=== PATIENT | male | born 1960 | race Two or more races ===

== ENCOUNTER 2024-03-11 14:46 | Emergency (ER) | payer MEDICAID, SELFPAY ==
[2024-03-11 14:51] VITALS: BP 131/82; PULSE 107; RESP 20; TEMP 36.6; O2SAT 93
--- NOTE | 2024-03-11 14:52 | PD.EDALCOH ---
ED Alcohol RME/HPI General Chief Complaint: Alcohol Stated Complaint: DRUNK Time Seen by Provider: 03/11/24 14:51 Arrival date/time: 03/11/24 14:46 RME / HPI RME / HPI narrative: 63 year old male presents to the ED BIBA for alcohol intoxication. Per medics report, bystanders called for help after patient was found laying on the side walk. State when they arrived patient smelled of alcohol and speech is slurred. Patient reportedly admitted to drinking 20 cans of beer in the last 3 hours. While in the ED patient reports no complaints. Related Data Home Medications ?Medication ?Instructions ?Recorded ?Confirmed No Known Home Medications 07/11/20 07/11/20 Previous Rx's ?Medication ?Instructions ?Recorded folic acid 1 mg tablet 1 mg PO DAILY #30 tabs 07/13/20 insulin regular human 100 unit/mL 0 unit (0 mL) subcut ACHS #10 mL 07/13/20 injection solution (Novolin R Regular U-100 Insulin) metformin 500 mg tablet 500 mg PO BID #60 tabs 07/13/20 multivitamin-iron 9 mg-folic acid 1 tab PO QDAY #30 tabs 07/13/20 400 mcg-calcium and minerals tablet (Thera M Plus (ferrous fumarate)) thiamine mononitrate (vit B1) 100 100 mg PO DAILY #30 tabs 07/13/20 mg tablet (Vitamin B-1 (mononitrate)) Allergies Allergy/AdvReac Type Severity Reaction Status Date / Time No Known Allergies Allergy Verified 07/11/20 13:06 Review of Systems Review of Systems Systems Reviewed: All systems reviewed, normal except as documented Past Medical History Past Medical History CARDIAC: Positive Hypercholesterolemia and Hypertension; Negative Congestive Heart Failure RESPIRATORY: Negative Chronic Obstructive Pulmonary Disease (COPD) GENITOURINARY: Negative Renal Disease ENDOCRINE: Positive Diabetes Mellitus Type 2; Negative Diabetes Mellitus Type 1 Social History SMOKING STATUS: Unknown if ever smoked SUBSTANCE USE: does not use ED Exam Narrative Physical exam: GENERAL APPEARANCE: Intoxicated, smells of alcohol, slurred speech HEENT: NC, AT. MMM. EOMI, clear conjunctiva, oropharynx clear. NECK: Supple without lymphadenopathy. No stiffness or restricted ROM. HEART: Normal rate and regular rhythm, normal S1/S1, no m/r/g LUNGS: CTAB, moving air well. No crackles or wheezes are heard. ABDOMEN: Soft, nontender, nondistended with good bowel sounds heard. BACK: No midline C/T/L spine pain or deformity, No CVAT, no obvious deformity. EXTREMITIES: Without cyanosis, clubbing or edema. MUSCULOSKELETAL: FROM of all major joints, no chest tenderness. NEUROLOGICAL: Grossly nonfocal. CN not formally tested but appear grossly intact. Skin: Warm and dry without any rash. Course Quality Measures none Reevaluation(s) Reevaluation #1: Patient remains clinically stable throughout the emergency department visit. Patient is amenable to discharge. Time: 17:10 Vital Signs Vital signs: Vital Signs Temperature 97.9 F 03/11/24 14:51 Pulse Rate 107 H 03/11/24 14:51 Respiratory Rate 20 03/11/24 14:51 Blood Pressure 131/82 H 03/11/24 14:51 Pulse Oximetry (%) 93 L 03/11/24 14:51 Oxygen Delivery Method Room Air 03/11/24 14:51 Pulse ox is 93% on room air which is borderline low. Discharge Plan Plan Patient Disposition: HOME (Self Care) Prescriptions/Referrals Prescriptions/Med Rec: No Action No Known Home Medications Novolin R Regular U100 Insulin 100 unit/mL Solution 0 unit subcut ACHS Qty: 10 0RF folic acid 1 mg Tablet 1 mg PO DAILY Qty: 30 0RF Thera M Plus (ferrous fumarat) 9 mg iron-400 mcg Tablet 1 tab PO QDAY Qty: 30 0RF thiamine mononitrate (vit B1) [Vitamin B-1 (mononitrate)] 100 mg Tablet 100 mg PO DAILY Qty: 30 0RF metformin 500 mg tablet 500 mg PO BID Qty: 60 0RF Problem List Clinical Impression: Alcoholic intoxication Patient/Caregiver Discharge Instructions Education Materials: ED Alcohol Intoxication Additional Instructions: No myla alcohol en exceso, considere suspender el consumo de alcohol por completo para mejorar hammer devyn. Puede realizar un seguimiento con hammer m?dico de atenci?n primaria y/o el departamento de devyn mental del condado si se siente preparado para recibir apoyo de rehabilitaci?n de alcohol y/o drogas. No dude en regresar al departamento de emergencias antes si los s?ntomas empeoran o si nota alg?n problema nuevo que le preocupe. Print Language: Cambodian Stand Alone Forms: Charo Award Info., Patient Portal Info Letter Alcohol MDM Narrative MDM Narrative: IValerie, am scribing for and in the presence of Dr. German. Patient data External records reviewed:: [facility] previous records (I reviewed admission from 07/11/2020 through 07/13/2020) Clinical information provided by:: patient and EMS Social determinants that could affect healthcare access:: alcohol use Patient has the following chronic illnesses:: HTN, DM, alcohol use How is presenting disease/condition affected by chronic disease/condition?: exacerbated by Evaluation data The following diagnostics were reviewed and interpreted by me:: other (specify) (No diagnostic labs for review ) Lab and/or radiology exams considered but not ordered:: None Interpretation Summary: No diagnostic labs for review Medications / Prescriptions Medications or Prescriptions considered but not ordered:: None Medication administrations:: none Consultations Consultation(s) initiated? (list below): No Diagnosis Differential diagnosis alcohol: alcohol withdrawal delirium, alcohol intoxication, alcohol ketoacidosis, alcohol withdrawal syndrome and alcohol withdrawal seizure Most likely diagnosis given after review of the tests above:: Alcohol intoxication Admission Indicated Admission indicated?: not indicated Admission Request Was there a request for admission?: No Disposition Plan Disposition Plan: Discharge Discharge Attestation Discharge Attestation: The patient and all family members were given an opportunity to ask questions and understood the discharge instructions. Discharge instructions specifically effects, indications for sooner follow up or return to the emergency department, and the expected course of current diagnosis. Patient condition: Stable
[2024-03-11 15:05] VITALS: PULSE 111; RESP 24; O2SAT 97; BMI 23.3
--- NOTE | 2024-03-11 18:07 | PC.NURSE ---
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
== END 2024-03-11 18:29 | disposition home or self-care (01) ==
LOC: SERX 18:21
PROVIDERS: Emergency Provider Emergency Medicine
DX: F10.129 Alcohol abuse with intoxication, unspecified (principal)
CPT/HCPCS: 99283

== ENCOUNTER 2024-03-17 17:32 | Emergency (ER) | payer MEDICAID, SELFPAY ==
[2024-03-17] VITALS (32 sets, daily range): BP systolic 110–192; BP diastolic 64–127; PULSE 130–139; RESP 16–36; TEMP 37–37.7; O2SAT 98–100; BMI 24.9
--- NOTE | 2024-03-17 18:07 | PC.NURSE ---
Patient to er from [facility] and taken to room 5 with at bedside, stating patient has been drinking beer all day everyday for 9 days, today patient has not drank today, last drink was 0800 am yesterday. Today brought patient to er because patient c/o headache and stomach ache and has h/o diabetes, also, patient been soiled himself yesterday and today. Patient has h/o diabetes and has had DKA in the past, provider, Elvi MUSEUM TECHNICIAN at bedside new orders received.
--- NOTE | 2024-03-17 18:15 | EKG_ITS ---
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
--- NOTE | 2024-03-17 18:15 | XR_ITS ---
Examination: CT brain head without contrast. 2-D sagittal coronal reconstructions Date and time of exam:March 17, 2024 1848 hrs. Indications: Altered mental status and confusion beginning yesterday Comparison: February 11, 2019 CTDI: vol (mGy):46.6 DLP: (mGycm):999 Technique: Multiple CT axial sections of the brain have been obtained, 5 mm slice thickness. Contrast has not been administered. 2-D sagittal, coronal reconstructions have been obtained Low dose protocols were performed. One or more of the following dose reduction techniques were used; automated exposure control, adjustment of the mA and/or KV according to patient size, use of iterative reconstruction technique. Findings: Acute subdural hematoma peripheral to the right cerebral hemisphere, measuring up to 12 mm at the level of the lateral ventricles There is shift of the frontal horns to the left 2.5 mm Cranial vault intact Fourth ventricle midline No herniation of the cerebellar tonsils Impression: Acute subdural hematoma peripheral to the right cerebral hemisphere with mass effect as above
--- NOTE | 2024-03-17 18:15 | XR_ITS ---
Examination: CT cervical spine without contrast 2-D sagittal reconstructions 2-D coronal reconstructions 3-D reconstructions. Exam date and time:March 17, 2024 1848 hrs. Indications: Altered mental status confusion neck pain beginning yesterday CTDI:vol (mGy) 7.56 DLP: (mGycm) 156 Technique: Multiple 2 mm axial sections of the cervical spine have been obtained. The coronal and sagittal reconstructions have been obtained. 3-D reconstructions have been obtained. Low dose protocols were performed. One or more of the following dose reduction techniques were used; automated exposure control, adjustment of the mA and/or KV according to patient size, use of iterative reconstruction technique. Findings: Axial sections demonstrate intact base of the skull. C1 exhibit satisfactory relationship to the odontoid. No acute cervical vertebral body fracture seen. Alignment posterior spinous processes satisfactory. Impression: No acute cervical fracture.
--- NOTE | 2024-03-17 18:15 | XR_ITS ---
Examination: AP chest single view Technique one AP portable sitting chest single view Exam date and time: March 17, 2024 1904 hrs. Indications: Syncopal episode today. Findings: Normal heart size The lungs are clear, no aspiration pneumonia Moderate osteopenia Impression: Negative for aspiration pneumonia
[2024-03-17] MEDS: SODIUM CHLORIDE 0.9% 1000 ML 1,000 ML 999 ML IV ×2 (18:36)
[2024-03-17 18:46] LABS: Basophils % (Auto) 0 % (0-2.5); Eosinophils % (Auto) 0 % (0-10); Hemoglobin 15.3 g/dL (13.5-16.0); Immature Granulocytes % (Auto) 0 % (0-0); Immature Granulocytes Auto 0.04 Thou/mm3 (0.00-0.00); Lymphocytes # (Auto) 0.2 Thou/mm3 (1.0-4.8); Lymphocytes % (Auto) 2 % (10-50); Mean Corpuscular HGB Conc 35.6 g/dl (31.0-37.0); Mean Corpuscular Volume 82 fL (80-100); Monocytes # (Auto) 0.7 Thou/mm3 (0.0-0.8); Monocytes % (Auto) 6 % (0-12); Neutrophils # (Auto) 11.1 Thou/mm3 (1.8-7.7); Neutrophils % (Auto) 92 % (37-80); Nucleated Red Blood Cell % 0 /100 WBC (0); Platelet Count 251 Thou/mm3 (140-440); RDW Standard Deviation 38.9 fL (35.1-43.9); Red Blood Count 5.27 Miln/mm3 (4.50-5.90); White Blood Count 12.1 Thou/mm3 (3.8-10.6)
--- NOTE | 2024-03-17 18:46 | PC.NURSE ---
Patient gone to ct
--- NOTE | 2024-03-17 18:54 | PD.EDALCOH ---
ED Alcohol RME/HPI General Chief Complaint: Alcohol Stated Complaint: DRINKING ETOH x 1 WEEK, CONFUSED SINCE YESTERDAY Time Seen by Provider: 03/17/24 18:14 Source: EMS Arrival date/time: 03/17/24 17:32 Mode of arrival: EMS Limitations: no limitations RME / HPI RME / HPI narrative: Dr. Shin?s Main ED Evaluation: 63-year-old male was brought to the Emergency Department by family via private vehicle due to progressively worsening confusion that began yesterday. According to the patient's daughter, he has been drinking alcohol heavily for the past 9 days after maintaining 3 years of sobriety. The exact amount and type of alcohol consumed are unclear. The daughter reports the patient had a fall about a week ago. She notes the patient has not had a fall while in her care for the past 7 days. No additional symptoms such as weakness, dizziness, nausea, vomiting, or seizure activity were reported at this time. The patient?s baseline mental status prior to the recent alcohol binge was described as normal, without known cognitive impairment. Related Data Home Medications ?Medication ?Instructions ?Recorded ?Confirmed No Known Home Medications 07/11/20 07/11/20 Previous Rx's ?Medication ?Instructions ?Recorded folic acid 1 mg tablet 1 mg PO DAILY #30 tabs 07/13/20 insulin regular human 100 unit/mL 0 unit (0 mL) subcut ACHS #10 mL 07/13/20 injection solution (Novolin R Regular U-100 Insulin) metformin 500 mg tablet 500 mg PO BID #60 tabs 07/13/20 multivitamin-iron 9 mg-folic acid 1 tab PO QDAY #30 tabs 07/13/20 400 mcg-calcium and minerals tablet (Thera M Plus (ferrous fumarate)) thiamine mononitrate (vit B1) 100 100 mg PO DAILY #30 tabs 07/13/20 mg tablet (Vitamin B-1 (mononitrate)) Allergies Allergy/AdvReac Type Severity Reaction Status Date / Time No Known Allergies Allergy Verified 03/17/24 17:36 Past Medical History Past Medical History CARDIAC: Positive Hypercholesterolemia and Hypertension; Negative Cardiac Disorders or Congestive Heart Failure RESPIRATORY: Negative Chronic Obstructive Pulmonary Disease (COPD) or Asthma GENITOURINARY: Negative Renal Disease ENDOCRINE: Positive Diabetes Mellitus Type 2 (hasn't taken medication in months per ); Negative Diabetes Mellitus Type 1 HEMATOLOGIC: Negative Sickle Cell Disease Social History SMOKING STATUS: Current every day smoker SUBSTANCE USE: does not use ED Exam Narrative Physical exam: GENERAL APPEARANCE: Patient is awake, alert, and follows commands but appears confused. Speech is incoherent. VITALS: All vitals were reviewed and the pulse ox is 99% on room air, which is normal according to my interpretation. HEENT: Healing contusion with eschar noted on the left forehead. No gordon signs or raccoon eyes. Left pupil is 6mm. Right pupil is 2mm. Healing contusion to the left periorbital area. NECK: Supple LUNGS: CTABL; no wheezes, no rales, no rhonchi. Patient is protecting his airway. HEART: Tachycardic ABDOMEN: non distended; normal BS; soft, no tenderness, no guarding, no rebound; no masses, no organomegaly, no hernia BACK: no CVA tenderness EXTREMITIES: atraumatic; no edema NEUROLOGIC: Patient is awake, alert, and follows commands but appears confused. Speech is incoherent. PSYCHIATRIC: appropriate mood and affect SKIN: warm, dry, normal color; no rashes General Limitations: Present no limitations Course Course Course Narrative: CXR is ordered for determining etiology of syncopal episode. Quality Measures none Orders Category Date Time Status Bedside Blood Glucose NOW Care 03/17/24 18:[address] Screening NOW Care 03/17/24 18:[address] Screening X1 Care 03/17/24 18:41 Completed Bagging Machine Operator STAT Care 03/17/24 18:15 Completed DKA Protocol QSHIFT Care 03/17/24 19:56 Completed DKA Protocol QSHIFT Care 03/17/24 20:34 Completed EKG (ED ONLY) *Do not use* NOW Care 03/17/24 18:15 Completed Insert IV NOW Care 03/17/24 18:15 Completed Intubation NOW Care 03/17/24 21:[address] cervical spine wo con Stat Exams 03/17/24 18:[address] head/brain wo con Stat Exams 03/17/24 18:15 Completed EKG (ED Only) Stat Exams 03/17/24 18:15 Draft XR chest 1V portable Stat Exams 03/17/24 18:15 Completed XR chest 1V post procedure Stat Exams 03/17/24 21:23 Completed ABG [Arterial Blood Gas] Stat Lab 03/17/24 22:45 Completed Alcohol, Blood Medical Stat Lab 03/17/24 18:38 Completed Ammonia Stat Lab 03/17/24 18:38 Completed CBC Stat Lab 03/17/24 18:38 Completed Comprehensive Metabolic Panel Stat Lab 03/17/24 18:38 Completed Drug Screen,Urine Stat Lab 03/17/24 20:45 Completed Ketone [Beta Hydroxybutyrate] Stat Lab 03/17/24 19:46 Completed Lactate (Lactic Acid) Stat Lab 03/17/24 20:34 Completed Magnesium Stat Lab 03/17/24 18:38 Completed Partial Thromboplastin Time Stat Lab 03/17/24 18:38 Completed Phosphorous Stat Lab 03/17/24 18:38 Completed Prothrombin Time with INR Stat Lab 03/17/24 18:38 Completed Sputum Culture and Gram Stain Stat Lab 03/17/24 22:18 Results Troponin I Stat Lab 03/17/24 18:38 Completed Urinalysis Stat Lab 03/17/24 20:45 Completed Dextrose 5%-Lactated Ringers [D5-Lr] 1,000 ml Med 03/17/24 20:34 Discontinued Pot Chl Additive [KCl Additive] 40 meq IV 250 mls/hr Dextrose 5%-Lactated Ringers [D5-Lr] 1,000 ml Med 03/17/24 20:34 Discontinued IV 250 mls/hr Dextrose 50% Syr [D50w Syringe Abboject] Med 03/17/24 20:34 Discontinued 25 ml IV PRNMRX1 PRN Diazepam Inj [Valium Inj] Med 03/17/24 20:09 Discontinued 10 mg IVP X1 ONE Etomidate Inj [Amidate Inj] Med 03/17/24 20:55 Discontinued 20 mg IVP X1 ONE Folic Acid Inj Med 03/17/24 19:13 Discontinued 1 mg IVP X1 ONE KCL 20 mEq/L in D5-LR Med 03/17/24 20:34 Discontinued 20 meq in 1,000 ml IV 250 mls/hr LORazepam [Ativan Inj] Med 03/17/24 19:26 Discontinued 1 mg IVP X1 ONE LORazepam [Ativan Inj] Med 03/17/24 19:59 Discontinued 1 mg IVP X1 ONE POT PHOS 15 mMol in NS 250 ML [Pot Phos 15 mMol in NS Med 03/17/24 20:34 Discontinued 250 ml] 15 mmol in 250 ml IV PRN POTASSIUM CHL 10 mEq IVPB [Kcl Ivpb] Med 03/17/24 20:34 Discontinued 10 meq in 100 ml IV 100 mls/hr POTASSIUM CHL 10 mEq IVPB [Kcl Ivpb] Med 03/17/24 20:34 Discontinued 10 meq in 100 ml IV PRN Pre-Mixed [Pre-mixed Bag] 1 bag Med 03/17/24 19:56 Discontinued Insulin Reg 100 Units/100 ml [Myxredlin] 100 unit IV 0.1 unit/kg/hr Propofol 1,000 mg Ivpb [Diprivan Ivpb] Med 03/17/24 20:56 Discontinued 1,000 mg in 100 ml IV 5 mcg/kg/min Ringers Lactated 1000 ml [Lactated Ringers] 1,000 ml Med 03/17/24 20:34 Discontinued Pot Chl Additive [KCl Additive] 20 meq IV 250 mls/hr Ringers Lactated 1000 ml [Lactated Ringers] 1,000 ml Med 03/17/24 20:34 Discontinued Pot Chl Additive [KCl Additive] 40 meq IV 250 mls/hr Ringers Lactated 1000 ml [Lactated Ringers] 1,000 ml Med 03/17/24 20:34 Discontinued IV 250 mls/hr Rocuronium Inj [Zemuron Inj] Med 03/17/24 20:55 Discontinued 50 mg IVP X1 ONE Sodium Bicarb 8.4% SYR Med 03/17/24 20:34 Discontinued 50 ml IV PRN PRN Sodium Chloride 0.9% 1000 ml [Ns] 1,000 ml Med 03/17/24 18:27 Discontinued IV 999 mls/hr Sodium Chloride 0.9% 1000 ml [Ns] 1,000 ml Med 03/17/24 18:27 Discontinued IV 999 mls/hr Sodium Chloride 0.9% 250 ml [Ns] 250 ml Med 03/17/24 20:34 Discontinued Sod Phos Additive [NaPhos Additive] 15 mmol IV 62.5 mls/hr Sodium Chloride Rt Dione 10% [NS Rt Dione 10%] Med 03/17/24 21:30 Discontinued 5 ml INH X1 ONE Thiamine Inj [Vitamin B-1 Inj] Med 03/17/24 19:13 Discontinued 100 mg IVP X1 ONE Sputum Induction PRN RT 03/17/24 21:30 Ordered Volume Ventilator Stat RT 02/09/25 Active Vital Signs Vital signs: Vital Signs Temperature 98.6 F 03/17/24 17:49 Pulse Rate 139 H 03/17/24 17:49 Respiratory Rate 16 03/17/24 17:49 Blood Pressure 147/92 H 03/17/24 17:49 Pulse Oximetry (%) 99 03/17/24 17:49 Oxygen Delivery Method Room Air 03/17/24 17:49 Procedures -ED EKG Interpretation #1: Additional EKG comment: Patient's EKG at 19:13 showed sinus tachycardia at 140 with normal deviation, no ectopy. No signs of acute ischemia. Intubation Time out performed: Yes sedative: Etomidate Mg Given: 20 paralytic: Rocuronium Mg Given: 59 Laryngoscope: fiber optic video scope Assist Device Used: fiber optic device ET Tube Size: 7.5 ET Tube Uncuffed: Yes Tube Secured Depth (cm): 24 Tube Secured Location: teeth Tube Placement Confirmation: visualized tube passing through cords, no breath sounds over epigastrium and confirmation by capnometry Patient Tolerated Procedure: well and no complications Critical Care Time Critical Care Time Critical Care Time: Yes Total Critical Care Time (min.): 50 Attestation: The high probability of sudden, clinically significant deterioration in the patient?s condition required the highest level of my preparedness to intervene urgently. ? The services I provided to this patient were to treat and/or prevent clinically significant deterioration. Services included the following: chart data review, reviewing nursing notes and/or old charts, documentation time, partner management consultant collaboration regarding findings and treatment options, medication orders and management, direct patient care, vital sign assessments and ordering, interpreting and reviewing diagnostic studies and lab tests. ? Aggregate critical care time includes only time during which I was engaged in work directly related to the patient?s care, as described above, whether at bedside or elsewhere in the Emergency Department. It did not include time spent performing other reported procedures or the services of residents, students, nurses or physician assistants. Discharge Plan Plan Patient Disposition: [facility] Facility Pt Being Transferred to: [facility] [place] Service Needed for Transfer: Neurosurgery Prescriptions/Referrals Prescriptions/Med Rec: No Action No Known Home Medications Novolin R Regular U100 Insulin 100 unit/mL Solution 0 unit subcut ACHS Qty: 10 0RF folic acid 1 mg Tablet 1 mg PO DAILY Qty: 30 0RF Thera M Plus (ferrous fumarat) 9 mg iron-400 mcg Tablet 1 tab PO QDAY Qty: 30 0RF thiamine mononitrate (vit B1) [Vitamin B-1 (mononitrate)] 100 mg Tablet 100 mg PO DAILY Qty: 30 0RF metformin 500 mg tablet 500 mg PO BID Qty: 60 0RF Referrals: No Primary/Family,Physician [Primary Care Provider] - In 1 week Problem List Clinical Impression: Acute subdural hematoma, Altered mental status, JUAN (acute kidney injury), Alcoholic ketoacidosis, DKA (diabetic ketoacidosis) Patient/Caregiver Discharge Instructions Print Language: Latvian Stand Alone Forms: [employer] Award Info., Patient Portal Info Letter Alcohol MDM Narrative MDM Narrative: 63-year-old male presenting with progressive confusion, likely multifactorial in etiology, including acute subdural hematoma noted on CT (right cerebral hemisphere with mass effect) and hyperglycemia (blood sugar 751 mg/dL), possibly indicating diabetic ketoacidosis (DKA). Immediate concerns include neurological compromise from the subdural hematoma, with potential need for neurosurgical consultation, as well as hyperglycemia management. 1999 I spoke with the patient's family for approximately 10 minutes to gather additional history. The family reported that the patient stopped drinking yesterday following a 9-day binge. They also stated that the patient discontinued insulin therapy approximately one year ago. 2009 Upon re-examination, the patient's heart rate is elevated, currently in the 140s. He appears altered, displaying agitation and restlessness. To address his agitation, 5 mg of Valium (diazepam) is being ordered at this time. The patient will be closely monitored, and a reassessment will follow after administration to evaluate his response and determine further management needs. 2100 The patient has become progressively agitated, posing a risk of losing IV access. Due to the need for immediate and effective treatment of alcoholic ketoacidosis (AKA) and diabetic ketoacidosis (DKA), the decision has been made to proceed with intubation to facilitate stabilization, ensure adequate airway protection, and support ongoing management. Vitals signs include blood pressure of 146/118 and heart rate in the 130s. 2120 The patient's blood pressure has improved significantly from 192/127 mmHg to 148/76 mmHg following stabilization measures. A 100 mg propofol bolus has been administered, and a propofol drip has been initiated to maintain sedation. Additionally, an insulin drip and IV fluids have been ordered to manage the patient's metabolic derangements. The patient has four functional peripheral IVs in place. He is currently calm and stable, with ongoing sedation and close monitoring of hemodynamic status, glucose levels, and ventilatory support. 2203: Dr. Morris, neurosurgeon from [facility] accepts the patient for transfer. Scribe Attestation: I, Khanh Stoner, am scribing for and in the presence of Dr. Shin. Provider Notation: Although this document has been carefully reviewed, there may still be some phonetic and other typographical errors. These errors are purely grammatical due to imperfections in the software program and should not be construed in any way to compromise the substance of the patient's medical care during this visit. Patient data External records reviewed:: [facility] previous records and EMS form Clinical information provided by:: EMS Social determinants that could affect healthcare access:: substance use Patient has the following chronic illnesses:: see PMH How is presenting disease/condition affected by chronic disease/condition?: exacerbated by Evaluation data The following diagnostics were reviewed and interpreted by me:: lab results, radiology exam(s) and EKG tracing(s) Lab and/or radiology exams considered but not ordered:: n/a Interpretation Summary: I personally reviewed the radiology data and agree with the radiologist's interpretation. CXR shows normal cardiac silhouette, normal sharp diaphragmatic edge, no infiltrates, normal costophrenic angles, according to my interpretation. Examination: CT cervical spine without contrast Exam date and time:March 17, 2024 1848 hrs. Indications: Altered mental status confusion neck pain beginning yesterday Findings: Axial sections demonstrate intact base of the skull. C1 exhibit satisfactory relationship to the odontoid. No acute cervical vertebral body fracture seen. Alignment posterior spinous processes satisfactory. Impression: No acute cervical fracture. Examination: CT brain head without contrast. Date and time of exam:March 17, 2024 1848 hrs. Indications: Altered mental status and confusion beginning yesterday Comparison: February 11, 2019 Findings: Acute subdural hematoma peripheral to the right cerebral hemisphere, measuring up to 12 mm at the level of the lateral ventricles There is shift of the frontal horns to the left 2.5 mm Cranial vault intact Fourth ventricle midline No herniation of the cerebellar tonsils Impression: Acute subdural hematoma peripheral to the right cerebral hemisphere with mass effect as above Dictated By: Shadi Fisher MD Medications / Prescriptions Medications or Prescriptions considered but not ordered:: n/a Medication administrations:: Medication Administration History Discontinued Medications Dextrose (Dextrose 50%-Water Inj 50 Ml Syringe) 25 ml IV PRNMRX1 PRN PRN Reason: Blood Sugar - Low Diazepam (Diazepam Inj 5 Mg/Ml Vial 2 Ml) 10 mg IVP X1 ONE Stop: 03/17/24 20:10 Last Admin: 03/17/24 20:12 Dose: 10 mg Documented By: YULIET Etomidate (Etomidate Inj 2 Mg/Ml Vial 10 Ml) 20 mg IVP X1 ONE Stop: 03/17/24 20:56 Last Admin: 03/17/24 21:10 Dose: 20 mg Documented By: YULIET Folic Acid (Folic Acid Inj 1 Mg/0.2 Ml) 1 mg IVP X1 ONE Stop: 03/17/24 19:14 Last Admin: 03/17/24 19:29 Dose: 1 mg Documented By: YULIET Sodium Chloride (Ns) 1,000 mls @ 999 mls/hr IV .Q1H1M ONE Stop: 03/17/24 19:27 Last Infusion: 03/17/24 20:20 Dose: Infused Documented By: Admin: 03/17/24 18:36 Dose: 999 mls/hr Documented By: RACHELLE Sodium Chloride (Ns) 1,000 mls @ 999 mls/hr IV .Q1H1M ONE Stop: 03/17/24 19:27 Last Infusion: 03/17/24 20:20 Dose: Infused Documented By: Admin: 03/17/24 18:36 Dose: 999 mls/hr Documented By: RACHELLE Insulin Human Regular 100 unit (/ IV Miscellaneous Supplies) 100 mls @ 6.577 mls/hr IV .[id number] PRN; Protocol PRN Reason: PER PROTOCOL Stop: 04/16/24 19:55 Last Titration: 03/17/24 23:30 Dose: 0.05 unit/kg/hr, 3.289 mls/hr Documented By: YULIET Co-signed By: TYLER Titration: 03/17/24 22:32 Dose: 0.1 unit/kg/hr, 6.577 mls/hr Documented By: YULIET Co-signed By: AILIN Titration: 03/17/24 21:30 Dose: 0.1 unit/kg/hr, 6.577 mls/hr Documented By: YULIET Co-signed By: EE Admin: 03/17/24 20:07 Dose: 0.1 unit/kg/hr, 6.577 mls/hr Documented By: YULIET Co-signed By: ROBBIN Potassium Chloride (Kcl Ivpb) 10 meq in 100 mls @ 100 mls/hr IV .Q1H PRN PRN Reason: IF POTASSIUM LESS THAN 3.3 Stop: 04/16/24 20:33 Dextrose/Lactated Ringer's (D5-Lr) 1,000 mls @ 250 mls/hr IV .Q4H PRN PRN Reason: PER PROTOCOL Stop: 04/16/24 20:33 Lactated Ringer's (Lactated Ringers) 1,000 mls @ 250 mls/hr IV .Q4H PRN PRN Reason: PER PROTOCOL Stop: 03/18/24 20:33 Last Admin: 03/17/24 20:50 Dose: 250 mls/hr Documented By: YULIET Potassium Chloride 20 meq/ (Lactated Ringer's) 1,010 mls @ 250 mls/hr IV .Q4H3M PRN PRN Reason: K LEVEL 3.3 TO 5.3mM/L Stop: 04/16/24 20:33 Potassium Chloride 40 meq/ (Lactated Ringer's) 1,020 mls @ 250 mls/hr IV .Q4H5M PRN PRN Reason: K LEVEL < 3.3 mM/L Stop: 04/16/24 20:33 Potassium Chloride 40 meq/ (Dextrose/Lactated Ringer's) 1,020 mls @ 250 mls/hr IV .Q4H5M PRN PRN Reason: K LEVEL < 3.3mM/L Stop: 04/16/24 20:33 Potassium Cl/Dextrose/Lact Ringer's (Kcl 20 Meq/L In D5-Lr) 20 meq in 1,000 mls @ 250 mls/hr IV .Q4H PRN PRN Reason: K LEVEL 3.3 TO 5.3 mM/L Stop: 04/16/24 20:33 Potassium Chloride (Kcl Ivpb) 10 meq in 100 mls @ 50 mls/hr IV PRN PRN PRN Reason: K LEVEL 3.3 to 5.3 & BG > 200 Stop: 04/16/24 20:33 Last Admin: 03/17/24 23:01 Dose: 50 mls/hr Documented By: Infusion: 03/17/24 22:57 Dose: Infused Documented By: Admin: 03/17/24 20:57 Dose: 50 mls/hr Documented By: YULIET Potassium Phosphate (Pot Phos 15 Mmol In Ns 250 Ml) 15 mmol in 250 mls @ 62.5 mls/hr IV PRN PRN PRN Reason: Phosphate <= 1mg/dL Stop: 04/16/24 20:33 Sodium Phosphate 15 mmol/ (Sodium Chloride) 255 mls @ 62.5 mls/hr IV .Q4H5M PRN PRN Reason: Phosphate <= 1mg/dL and K> than 5.3 Stop: 04/16/24 20:33 Propofol (Diprivan Ivpb) 1,000 mg in 100 mls @ 1.973 mls/hr IV .Q24H PRN; Protocol PRN Reason: PER PROTOCOL Stop: 04/16/24 20:55 Last Titration: 03/17/24 22:50 Dose: 35 mcg/kg/min, 13.812 mls/hr Documented By: Titration: 03/17/24 22:30 Dose: 30 mcg/kg/min, 11.839 mls/hr Documented By: Titration: 03/17/24 22:05 Dose: 25 mcg/kg/min, 9.866 mls/hr Documented By: Titration: 03/17/24 21:50 Dose: 20 mcg/kg/min, 7.893 mls/hr Documented By: Titration: 03/17/24 21:40 Dose: 15 mcg/kg/min, 5.919 mls/hr Documented By: Titration: 03/17/24 21:30 Dose: 10 mcg/kg/min, 3.946 mls/hr Documented By: Admin: 03/17/24 21:15 Dose: 5 mcg/kg/min, 1.973 mls/hr Documented By: YULIET Co-signed By: TYLER Lorazepam (Lorazepam 2 Mg/Ml Vial) 1 mg IVP X1 ONE Stop: 03/17/24 19:27 Last Admin: 03/17/24 19:50 Dose: 1 mg Documented By: YULIET Lorazepam (Lorazepam 2 Mg/Ml Vial) 1 mg IVP X1 ONE Stop: 03/17/24 20:00 Last Admin: 03/17/24 20:06 Dose: 1 mg Documented By: YULIET Rocuronium [place] (Rocuronium Inj 10 Mg/Ml Vial 10 Ml) 50 mg IVP X1 ONE Stop: 03/17/24 20:56 Last Admin: 03/17/24 21:11 Dose: 50 mg Documented By: YULIET Co-signed By: TYLER Sodium Bicarbonate (Sodium Bicarb Inj 8.4% Syr 50 Ml Syringe) 50 ml IV PRN PRN PRN Reason: For ph <= to 7.0 Stop: 04/16/24 20:33 Sodium Chloride (Sodium Chloride Rt 10% 15 Ml Nebu) 5 ml INH X1 ONE Stop: 03/17/24 21:31 Thiamine HCl (Thiamine Inj 100 Mg/Ml Vial 2 Ml) 100 mg IVP X1 ONE Stop: 03/17/24 19:14 Last Admin: 03/17/24 19:29 Dose: 100 mg Documented By: YULIET as above Consultations Consultation(s) initiated? (list below): Yes Consultation #1 (Physician, Specialty, Details): Call made to [facility] for neurosurgery services. Pending callback. Time: 20:00 Consultation #2 (Physician, Specialty, Details): Case discussed with Dr. Edward Lopez, neurosurgeon at [facility], who was informed of the patient's history of present illness (HPI), past medical history (PMHx), and relevant laboratory and radiology findings. Dr. Lopez indicated that the patient requires endovascular services, which are not available at their facility. He advised against neurosurgical intervention at this time due to the elevated bleeding risk and emphasized that the patient requires a higher level of care at a facility that can provide endovascular services. Call to be made to [facility] next. Time: 22:24 Consultation #3 (Physician, Specialty, Details): Case d/w [facility] who was made aware of the patient?s HPI, PMHx, lab and/or radiology results. Awaiting callback to determine if patient is accepted for transfer. Time: 20:43 Diagnosis Differential diagnosis alcohol: other (subdural hematoma, epidural hematoma, subarachnoid hemorrhage, skull fracture, cerebral bleed, such as an intraparenchymal hemorrhage) Most likely diagnosis given after review of the tests above:: See clinical impression below Admission Indicated Admission indicated?: not indicated Explain why admission is indicated or not indicated:: Needs transfer for higher level of care Admission Request Was there a request for admission?: No Disposition Plan Disposition Plan: Transfer
[2024-03-17 19:01] LABS: Partial Thromboplastin Time 25.5 Seconds (22.0-36.0)
[2024-03-17 19:06] LABS: Ammonia < 10 uMol/L (11-32)
[2024-03-17] MEDS: FOLIC ACID INJ 1 MG/0.2 ML IVP (19:29)
[2024-03-17] MEDS: THIAMINE INJ 100 MG/ML VIAL 2 ML IVP (19:29)
[2024-03-17 19:43] LABS: Alanine Aminotransferase 36 U/L (10-49); Albumin, Serum 4.4 gm/dL (3.4-4.8); Albumin/Globulin Ratio 1.3 (1.2-2.2); Alcohol, Blood Medical < 3.0 mg/dL (0-10.0); Alkaline Phosphatase 203 U/L (46-116); Anion Gap 21 (7-16); Aspartate Amino Transferase 23 U/L (0-34); BUN/Creatinine Ratio 13 Ratio (12-20); Bilirubin,Total 0.8 mg/dL (0.3-1.2); Blood Urea Nitrogen 25 mg/dL (9-23); Calcium 9.3 mg/dL (8.3-10.6); Calcium (Corrected) 9.3 mg/dL (8.5-10.1); Chloride 90 mMol/L (98-107); Creatinine (Component) 1.9 mg/dL (0.6-1.3); Estimated Creatinine Clearance 33.8 mL/min (>60); Globulin 3.5 gm/dL (2.3-3.5); Magnesium 2.8 mg/dL (1.6-2.6); Osmolality,Calculated 286 (275-295); Sodium 122 mMol/L (136-145); Total Protein 7.9 gm/dL (5.7-8.2); Troponin I < 0.020 ng/mL (0.0-0.045); eGFR 39 See Note
[2024-03-17] MEDS: LORazepam 2 MG/ML VIAL 1 MG IVP ×2 (19:50→20:06)
[2024-03-17 19:52] LABS: Carbon Dioxide 10.9 mMol/L (20.0-31.0); Glucose 751 mg/dL (74-106)
[2024-03-17 19:57] LABS: Beta Hydroxybutyrate 5.1 mmol/L (<0.6)
[2024-03-17] MEDS: INSULIN REG 100 UNITS/100 ML 100 UNIT in PRE-MIXED 1 BAG 6.577 UNIT IV (20:07)
[2024-03-17] MEDS: DIAZEPAM INJ 5 MG/ML VIAL 2 ML 10 MG IVP (20:12)
--- NOTE | 2024-03-17 20:28 | PC.NURSE ---
Transfer center from [facility] calling to let us know that their declines pt at this times and suggesting pt needs higher level of care.
[2024-03-17] MEDS: RINGERS LACTATED 1000 ML 1,000 ML 250 ML IV (20:50)
[2024-03-17 20:51] LABS: Collection Type, Urine Catheter
[2024-03-17 20:52] LABS: Lactate (Lactic Acid) 2.4 mMol/L (0.4-2.0)
[2024-03-17] MEDS: POTASSIUM CHL 10 mEq IVPB 10 MEQ/100 ML BAG 50 MEQ IV ×2 (20:57→23:01)
[2024-03-17 20:59] LABS: Bilirubin,Urine Negative (Negative); Blood,Urine 1+ (Negative); Clarity,Urine Clear (Clear/Hazy); Color,Urine Colorless (Lt Yel-Yel); Glucose, Urine 4+ (Negative); Ketones,Urine 4+ (Negative); Leukocyte Esterase,Urine Negative (Negative); Nitrite,Urine Negative (Negative); Protein,Urine Trace (Neg - Trace); RBC,Urine 1 /hpf (0-3); Squamous Epithelial Cell,Urine < 1 /hpf (0-5); Urobilinogen,Urine Negative mg/dL (0.0-1.0); WBC,Urine < 1 /hpf (0-5)
[2024-03-17 21:07] LABS: Phosphorous 2.6 mg/dL (2.4-5.1)
[2024-03-17] MEDS: ETOMIDATE INJ 2 MG/ML VIAL 10 ML 20 MG IVP (21:10)
[2024-03-17] MEDS: ROCURONIUM INJ 10 MG/ML VIAL 10 ML 50 MG IVP (21:11)
[2024-03-17 21:12] LABS: Amphetamine/Methamp Scrn,U Negative (Negative); Barbiturate Screen,Urine Negative (Negative); Benzodiazepines Screen,Urine Negative (Negative); Benzoylecgonine Screen, Ur Negative (Negative); Fentanyl Screen,Urine Negative (Negative); Opiate Screen,Urine Negative (Negative); THC Screen,Urine Negative (Negative)
[2024-03-17] MEDS: PROPOFOL 1,000 MG IVPB 1,000 MG/100 ML VIAL 1.973 MG IV (21:15)
--- NOTE | 2024-03-17 21:19 | PD.RESPROC ---
Procedures Procedure Date / Time 03/17/242118 Intubation Indication(s): inability to protect airway Informed consent obtained: implied and procedure done urgently Time out done, and the following verified: correct patient, side and site, procedure, patient position and implants and/or equipment Sedative: etomidate Mg given: 20 Paralytic: rocuronium Mg given: 50 Laryngoscope: fiber optic video scope ET tube size: 7.5 ET tube uncuffed: Yes Tube secured depth (cm): 24 Tube secured location: lips Tube placement confirmation: visualized tube passing through cords, equal breath sounds bilaterally, no breath sounds over epigastrium and confirmation by capnometry Patient tolerated procedure: well and no complications EBL(ml): 0 Intubation complications: none Additional comments: Procedure performed under supervision of attending Dr. Shin. Patrick Spencer PGY1 Internal medicine Disclaimer: This note was dictated by speech recognition. Minor errors in flight line service attendant may be present due to voice recognition software.
--- NOTE | 2024-03-17 21:23 | XR_ITS ---
Examination: AP chest single view Technique one AP portable semiupright chest single view Exam date and time: March 17, 20243 hrs. Comparison March 17, 2024 1904 hrs. Indications: Hypoxic respiratory failure postintubation Findings: Orogastric tube is in the origin of the left mainstem bronchus Orogastric tube is in the stomach the tip is below the level film Normal heart size Impression: Retract the endotracheal tube 4 cm
[2024-03-17 22:55] LABS: Base Excess -10 (-3-3); HCO3 14 mEq/L (20-26); Inspired Oxygen, FIO2 50 %; O2 Saturation 100 % (91-98); PCO2 27 mmHg (32.0-48.0); PO2 255 mmHg (83-108); pH, Arterial 7.32 (7.35-7.45)
[2024-03-17 23:02] LABS: Allen Test Performed/OK; Puncture Site Left Radial
--- NOTE | 2024-03-17 23:14 | PC.NURSE ---
Report given to Valorie at [facility]- awaiting flight team for transport
--- NOTE | 2024-03-17 23:37 | PC.NURSE ---
Report given to Talha KELLER from [facility], they will resume care and transport to [facility], EMS on site to assist with transport
[2024-03-17 23:49] LABS: Reflex Lactate? Y
== END 2024-03-17 23:57 | disposition short-term general hospital (02) ==
PROVIDERS: Nurse Practitioner Primary Care; Emergency Provider Emergency Medicine
DX: S06.5XAA Traumatic subdural hemorrhage with loss of consciousness status unknown, initial encounter (principal); W19.XXXA Unspecified fall, initial encounter
CPT/HCPCS: 51702; 31500; 36415; 36600; 70450; 71045; 72125; 80053; 80307; 80320; 81001; 82010; 82140; 82803; 83605; 83735; 84100; 84484; 85025; 85610; 85730; 87077; 87186; 87205; 92950; 93005; 94002; 96361; 96365; 96366; 96374; 96375; 99291; J1815; J2060; J2704; J3360; J3411; J3480; J3490; J7030; J7120; G0480

== ENCOUNTER → 2024-06-26 | Outpatient (CLI) | payer MEDICAID, SELFPAY ==
--- NOTE | 2024-06-26 08:30 | XR_ITS ---
Examination: CT brain head without contrast. 2-D sagittal coronal reconstructions Date and time of exam:June 26, 2024 0818 hours Comparison March 17, 2024 INDICATIONS: Head injury 04/14/2024 with acute subdural hematoma peripheral to the right cerebral hemisphere CTDI: vol (mGy):45.8 DLP: (mGycm):919 Technique: Multiple CT axial sections of the brain have been obtained, 5 mm slice thickness. Contrast has not been administered. 2-D sagittal, coronal reconstructions have been obtained Low dose protocols were performed. One or more of the following dose reduction techniques were used; automated exposure control, adjustment of the mA and/or KV according to patient size, use of iterative reconstruction technique. Findings: No significant ventricular enlargement. Intra-axial or extra-axial hemorrhage density is not seen. No mass effect or midline shift Basal cisterns are not remarkable. Fourth ventricle is midline. Cranial vault intact. Impression: Acute right subdural hematoma has resolved No interval acute hemorrhage, mass effect or midline shift
== END | disposition home or self-care (01) ==
PROVIDERS: PCP Family Medicine; Referring Provider Student in an Organized Health Care Education/Training Program; Visit Provider Student in an Organized Health Care Education/Training Program
DX: S06.5XAA Traumatic subdural hemorrhage with loss of consciousness status unknown, initial encounter (principal); X58.XXXA Exposure to other specified factors, initial encounter
CPT/HCPCS: 70450